=== PATIENT | male | born 2000 | race Caucasian/White ===

== ENCOUNTER 2025-01-28 08:35 | Emergency (ER) | payer SELFPAY ==
[~2025-01-28] VITALS: Ht 170.2 cm; Wt 71.0 kg
[2025-01-28 08:46] VITALS: O2SAT 100
[2025-01-28] MEDS: TETRACAINE 0.5% OPHTH DROPS 4ML BOTHEYE ONE (08:58)
[2025-01-28] MEDS: FLUORESCEIN SODIUM 1MG/STRIP BOTHEYE ONE (08:58)
[2025-01-28] MEDS ORDERED: PROP1DRO2 MT (09:18)
[2025-01-28] MEDS ORDERED: TOBRDO RIGHTEYE (09:18)
[2025-01-28 09:27] VITALS: BP 138/77; PULSE 84; RESP 16; TEMP 36.6; O2SAT 100
== END 2025-01-28 09:34 | disposition home or self-care (01) ==
LOC: ER 08:35
DX: T15.90XA Foreign body on external eye, part unspecified, unspecified eye, initial encounter (principal); Z79.899 Other long term (current) drug therapy; W44.8XXA Other foreign body entering into or through a natural orifice, initial encounter; Y93.89 Activity, other specified; Y92.89 Other specified places as the place of occurrence of the external cause; Y99.8 Other external cause status
CPT/HCPCS: 65222; 99284